=== PATIENT | female | born 1985 | race Caucasian/White ===

== ENCOUNTER 2017-11-29 11:44 | Inpatient (IN) | payer OTHER ==
[~2017-11-29] VITALS: Ht 167.6 cm; Wt 98.9 kg
[2017-11-29] MEDS ORDERED: FERR325E14 PO (12:07)
[2017-11-29] MEDS ORDERED: TRA200 PO (12:07)
[2017-11-29] MEDS ORDERED: PREN-380 PO (12:07)
[2017-11-29 12:26] VITALS: BP 135/77
[2017-11-29] MEDS ORDERED: TERBUTALINE 1 MG/ML VIAL SUBQ SCH (13:00)
[2017-11-29] MEDS ORDERED: TERBUTALINE 1 MG/ML VIAL SUBQ ONE (13:02)
[2017-11-29] MEDS ORDERED: SYN.075 PO (13:10)
[2017-11-29] MEDS ORDERED: METF500T PO (13:10)
[2017-11-29] MEDS ORDERED: BETAMETH ACET/BETAMETH NA PH 30 MG/5 ML VIAL IM ONE (14:00)
[2017-11-29] MEDS: BETAMETH ACET/BETAMETH NA PH 30 MG/5 ML VIAL IM SCH (14:03)
[2017-11-29 14:27] LABS: HEMOGLOBIN 10.5 g/dL (12.0-16.0); RED BLOOD CELL COUNT(AUTO) 3.77 MIL/uL (4.20-5.40); WHITE BLOOD COUNT (AUTO) 10.5 K/uL (4.8-10.8)
[2017-11-29 14:28] LABS: HEMATOCRIT 32.8 % (36-48); MEAN CORPUSCULAR HEMOGLOBIN 28 pg (27-31); MEAN CORPUSCULAR HGB CONC 32 g/dL (33-37); PLATELET COUNT (AUTO) 201 K/uL (140-450); RED CELL DISTRIBUTION WIDTH 13.3 % (11.6-13.7)
[2017-11-29 14:29] LABS: BASOPHILS # (AUTO) 0.2 K/uL (0.00-0.22); BASOPHILS % (AUTO) 1.8 % (0.0-2.0); EOSINOPHILS # (AUTO) 0.4 K/uL (0-0.4); EOSINOPHILS % (AUTO) 3.5 % (0.0-4.0); LYMPHOCYTES # (AUTO) 2.4 K/uL (2.5-16.5); MONOCYTES # (AUTO) 0.7 K/uL (0.8-1.0); MONOCYTES % (AUTO) 6.7 % (1.7-9.3); NEUTROPHILS # (AUTO) 6.8 K/uL (1.8-7.7)
[2017-11-29] MEDS: LACTATED RINGERS 1,000 ML IV SCH ×2 (14:35→22:11)
[2017-11-29 14:50] LABS: PROTHROMBIN TIME 9.8 secs (10.8-13.4)
[2017-11-29 15:35] LABS: BILIRUBIN,URINE NEGATIVE (NEGATIVE); BLOOD, URINE NEGATIVE (NEGATIVE); COLOR,URINE YELLOW (YELLOW); LEUKOCYTE ESTERASE ,URINE TRACE (NEGATIVE); NITRITE, URINE NEGATIVE (NEGATIVE); PH,URINE 6.5 (5.0-9.0); UGLUCOSE NEGATIVE (NEGATIVE)
[2017-11-29 15:57] LABS: POTASSIUM 2.8 mmol/L (3.5-5.1)
[2017-11-29 15:58] LABS: ANION GAP 11.6 (8-16); CARBON DIOXIDE 25.2 mmol/L (21-32); CREATININE 0.6 mg/dL (0.6-1.3); TOTAL BILIRUBIN 0.4 mg/dL (0.0-1.0)
[2017-11-29 15:59] LABS: ALBUMIN 2.8 g/dL (3.4-5.0)
[2017-11-29 17:21] LABS: APPEARANCE,URINE HAZY (CLEAR)
[2017-11-29] MEDS ORDERED: POTASSIUM CHLORIDE 10 MEQ TABER PO SCH (20:00)
[2017-11-29] MEDS ORDERED: POTASSIUM CHLORIDE 10 MEQ TABER PO ONE (20:20)
[2017-11-29] MEDS: metFORMIN 500 MG TAB PO SCH (21:06)
[2017-11-29] MEDS: LABETALOL 200 MG TAB PO SCH (21:06)
[2017-11-29] MEDS ORDERED: LABETALOL 200 MG TAB ONE (21:08)
[2017-11-30] MEDS: TERBUTALINE 2.5 MG TAB PO SCH ×3 (00:03→12:00)
[2017-11-30] MEDS ORDERED: TERBUTALINE 2.5 MG TAB ONE ×3 (00:04→12:02)
[2017-11-30] MEDS: LACTATED RINGERS 1,000 ML IV SCH (06:30)
[2017-11-30] MEDS ORDERED: LEVOTHYROXINE 0.075 MG TAB PO SCH (06:30)
[2017-11-30] MEDS: LABETALOL 200 MG TAB PO SCH (08:55)
[2017-11-30] MEDS ORDERED: LABETALOL 200 MG TAB ONE (08:57)
[2017-11-30] MEDS: metFORMIN 500 MG TAB PO SCH (09:33)
--- NOTE | 2017-11-30 10:27 | NUR ---
PATIENT HAS BEEN SCREENED AND CATEGORIZED LOW NUTRITION RISK. PATIENT WILL BE SEEN WITHIN 7 DAYS OF ADMISSION. 12/05/[address]
[2017-11-30] MEDS ORDERED: BRE5 PO (13:37)
--- NOTE | 2017-11-30 13:37 | NUR ---
CM NOTE INITIAL REVIEW FAXED TO [facility] [phone] [place] PH# [phone] CAL [phone]
[2017-11-30] MEDS ORDERED: BETAMETH ACET/BETAMETH NA PH 30 MG/5 ML VIAL IM ONE (14:04)
[2017-11-30] MEDS: BETAMETH ACET/BETAMETH NA PH 30 MG/5 ML VIAL IM SCH (14:05)
== END 2017-11-30 14:45 | disposition home or self-care (01) | DRG 566 ==
LOC: MLD 11:44 → OBSVTOIN 12:18
PROVIDERS: ADMIT Obstetrics & Gynecology; ATTEND Obstetrics & Gynecology
DX: O26.893 Other specified pregnancy related conditions, third trimester (principal); R03.0 Elevated blood-pressure reading, without diagnosis of hypertension; Z3A.34 34 weeks gestation of pregnancy
CPT/HCPCS: 36415; 76805; 80053; 81001; 85025; 85379; 85384; 85610; 85730; C1758; G0378; J0702; J3105; J7120; Q0092

== ENCOUNTER 2017-12-09 14:13 | Observation (INO) | payer OTHER ==
[~2017-12-09] VITALS: Ht 167.6 cm; Wt 98.9 kg
[~2017-12-09 14:13] MED LIST: FERR325E14 PO; PREN-380 PO
[2017-12-09 15:12] VITALS: BP 139/77
[2017-12-09] MEDS ORDERED: TRA200 PO (16:38)
[2017-12-09] MEDS ORDERED: LORA10TA19 PO (16:47)
[2017-12-09] MEDS ORDERED: METF500T PO (16:47)
[2017-12-09] MEDS ORDERED: SYN.075 PO (16:47)
== END 2017-12-09 19:45 | disposition home or self-care (01) ==
LOC: MLD 14:13
PROVIDERS: ADMIT Obstetrics & Gynecology; ATTEND Obstetrics & Gynecology
DX: O26.893 Other specified pregnancy related conditions, third trimester (principal); R10.9 Unspecified abdominal pain; Z3A.36 36 weeks gestation of pregnancy
CPT/HCPCS: 36415; 81000; 82731; G0378

== ENCOUNTER 2017-12-17 13:37 | Inpatient (IN) | payer OTHER ==
[~2017-12-17] VITALS: Ht 167.6 cm; Wt 100.7 kg
[~2017-12-17 13:37] MED LIST changes: +LORA10TA19 PO; +METF500T PO; +SYN.075 PO; +TRA200 PO
[2017-12-17] MEDS ORDERED: TERBUTALINE 1 MG/ML VIAL SUBQ ONE (14:53)
== END 2017-12-17 17:56 | disposition home or self-care (01) | DRG 566 ==
LOC: MLD 13:37
PROVIDERS: ADMIT Obstetrics & Gynecology; ATTEND Obstetrics & Gynecology
DX: O26.893 Other specified pregnancy related conditions, third trimester (principal); Z3A.00 Weeks of gestation of pregnancy not specified
CPT/HCPCS: 59025; 76815; J3105; Q0092

== ENCOUNTER 2017-12-31 14:42 | Inpatient (IN) | payer OTHER ==
[~2017-12-31] VITALS: Ht 167.6 cm; Wt 101.6 kg
[2017-12-31] MEDS ORDERED: CARBOPROST 250 MCG/ML AMP IM PRN (15:10)
[2017-12-31] MEDS ORDERED: PROMETHAZINE 25 MG/ML VIAL IVP PRN (15:10)
[2017-12-31] MEDS ORDERED: LACTATED RINGERS 1,000 ML IV SCH (15:10)
[2017-12-31] MEDS ORDERED: METHYLERGONOVINE 0.2 MG/ML AMP IM PRN (15:10)
[2017-12-31] MEDS ORDERED: NALBUPHINE 10 MG/ML AMP IVP PRN (15:10)
[2017-12-31] MEDS ORDERED: OXYTOCIN 10 UNITS/ML VIAL IM SCH (15:10)
[2017-12-31 15:19] VITALS: BP 135/81
[2017-12-31] MEDS ORDERED: MISOPROSTOL 25 MCG TAB VG SCH (16:00)
[2017-12-31 16:18] LABS: BASOPHILS % (AUTO) 0.4 % (0.0-2.0); EOSINOPHILS # (AUTO) 0.3 K/uL (0-0.4); EOSINOPHILS % (AUTO) 3.2 % (0.0-4.0); HEMATOCRIT 30.5 % (36-48); HEMOGLOBIN 10.4 g/dL (12.0-16.0); LYMPHOCYTES # (AUTO) 2.2 K/uL (2.5-16.5); LYMPHOCYTES % (AUTO) 20.6 % (20.5-51.1); MEAN CORPUSCULAR HEMOGLOBIN 29 pg (27-31); MEAN CORPUSCULAR HGB CONC 34 g/dL (33-37); MEAN CORPUSCULAR VOLUME 85.2 fL (80-94); MONOCYTES # (AUTO) 0.7 K/uL (0.8-1.0); MONOCYTES % (AUTO) 6.6 % (1.7-9.3); NEUTROPHILS # (AUTO) 7.5 K/uL (1.8-7.7); NEUTROPHILS % (AUTO) 69.2 % (42.2-75.2); PLATELET COUNT (AUTO) 229 K/uL (140-450); RED BLOOD CELL COUNT(AUTO) 3.58 MIL/uL (4.20-5.40); RED CELL DISTRIBUTION WIDTH 14.4 % (11.6-13.7); WHITE BLOOD COUNT (AUTO) 10.8 K/uL (4.8-10.8)
[2017-12-31 16:21] LABS: APPEARANCE,URINE SL CLOUDY (CLEAR); BILIRUBIN,URINE NEGATIVE (NEGATIVE); BLOOD, URINE NEGATIVE (NEGATIVE); COLOR,URINE YELLOW (YELLOW); LEUKOCYTE ESTERASE ,URINE TRACE (NEGATIVE); NITRITE, URINE NEGATIVE (NEGATIVE); PH,URINE 7.5 (5.0-9.0); UGLUCOSE NEGATIVE (NEGATIVE)
[2017-12-31 16:48] LABS: PROTHROMBIN TIME 8.7 secs (10.8-13.4)
[2017-12-31 16:49] LABS: RBC,URINE 0-5 (RARE) /HPF (0-5); WBC,URINE 0-5 (RARE) /HPF (0-5)
[2017-12-31 16:51] LABS: ALBUMIN 2.7 g/dL (3.4-5.0); ANION GAP 12.1 (8-16); CARBON DIOXIDE 23.1 mmol/L (21-32); CREATININE 0.4 mg/dL (0.6-1.3); POTASSIUM 3.2 mmol/L (3.5-5.1); TOTAL BILIRUBIN 0.3 mg/dL (0.0-1.0)
== END 2017-12-31 20:00 | disposition home or self-care (01) | DRG 566 ==
LOC: MLD 14:42
PROVIDERS: ADMIT Obstetrics & Gynecology; ATTEND Obstetrics & Gynecology
DX: O14.90 Unspecified pre-eclampsia, unspecified trimester (principal); Z3A.00 Weeks of gestation of pregnancy not specified
CPT/HCPCS: 36415; 76815; 80053; 81001; 85025; 85610; 85730; 86592; 86886; 86900; 86901; J7120; Q0092

== ENCOUNTER 2018-01-06 17:40 | Inpatient (IN) | payer OTHER ==
[~2018-01-06] VITALS: Ht 167.6 cm; Wt 96.2 kg
[2018-01-06] MEDS: LACTATED RINGERS 1,000 ML IV SCH (05:09)
[~2018-01-06 17:40] MED LIST changes: -LORA10TA19 PO
[2018-01-06 18:19] VITALS: BP 169/93
[2018-01-06] MEDS ORDERED: OXYTOCIN 20 UNITS in LACTATED RINGERS 1,000 ML IV SCH ×2 (19:26→20:06)
[2018-01-06] MEDS ORDERED: NALBUPHINE 10 MG/ML AMP IVP PRN ×2 (19:30→20:10)
[2018-01-06] MEDS ORDERED: MORPHINE SULFATE 2 MG/ML SYR IVP PRN (19:30)
[2018-01-06] MEDS ORDERED: ONDANSETRON 4 MG/2 ML VIAL IVP PRN (19:30)
[2018-01-06] MEDS ORDERED: MISOPROSTOL 25 MCG TAB VG ONE ×2 (20:00→20:10)
[2018-01-06] MEDS ORDERED: MISOPROSTOL 25 MCG TAB ONE ×2 (20:22→20:29)
[2018-01-06 20:36] LABS: BASOPHILS % (AUTO) 0.5 % (0.0-2.0); EOSINOPHILS # (AUTO) 0.2 K/uL (0-0.4); EOSINOPHILS % (AUTO) 2.4 % (0.0-4.0); HEMATOCRIT 30.4 % (36-48); HEMOGLOBIN 10.5 g/dL (12.0-16.0); LYMPHOCYTES % (AUTO) 21.5 % (20.5-51.1); MEAN CORPUSCULAR HEMOGLOBIN 30 pg (27-31); MEAN CORPUSCULAR HGB CONC 34 g/dL (33-37); MEAN CORPUSCULAR VOLUME 86.2 fL (80-94); MONOCYTES # (AUTO) 0.7 K/uL (0.8-1.0); NEUTROPHILS # (AUTO) 6.4 K/uL (1.8-7.7); NEUTROPHILS % (AUTO) 68.6 % (42.2-75.2); PLATELET COUNT (AUTO) 193 K/uL (140-450); RED BLOOD CELL COUNT(AUTO) 3.53 MIL/uL (4.20-5.40); RED CELL DISTRIBUTION WIDTH 14.6 % (11.6-13.7); WHITE BLOOD COUNT (AUTO) 9.3 K/uL (4.8-10.8)
[2018-01-06] MEDS: NIFEdipine 10 MG CAPLF PO SCH (20:47)
[2018-01-06] MEDS ORDERED: NIFEdipine 10 MG CAPLF ONE (20:49)
[2018-01-06 20:59] LABS: ALBUMIN 2.5 g/dL (3.4-5.0); ANION GAP 13.2 (8-16); CARBON DIOXIDE 23.1 mmol/L (21-32); CREATININE 0.5 mg/dL (0.6-1.3); POTASSIUM 3.3 mmol/L (3.5-5.1); TOTAL BILIRUBIN 0.3 mg/dL (0.0-1.0)
[2018-01-06] MEDS: LABETALOL 200 MG TAB PO SCH (21:12)
[2018-01-06] MEDS ORDERED: LABETALOL 200 MG TAB ONE (21:15)
[2018-01-06 21:33] LABS: APPEARANCE,URINE CLEAR (CLEAR); BILIRUBIN,URINE NEGATIVE (NEGATIVE); BLOOD, URINE NEGATIVE (NEGATIVE); COLOR,URINE YELLOW (YELLOW); LEUKOCYTE ESTERASE ,URINE NEGATIVE (NEGATIVE); NITRITE, URINE NEGATIVE (NEGATIVE); UGLUCOSE NEGATIVE (NEGATIVE)
[2018-01-07] MEDS: NIFEdipine 10 MG CAPLF PO SCH ×5 (01:03→17:20)
[2018-01-07] MEDS ORDERED: NIFEdipine 10 MG CAPLF ONE ×5 (01:04→17:21)
[2018-01-07] MEDS ORDERED: OXYTOCIN 20 UNITS/LR PREMIX 1,000 ML IV ONE (03:43)
--- NOTE | 2018-01-07 08:31 | NUR ---
PATIENT HAS BEEN SCREENED AND CATEGORIZED LOW NUTRITION RISK. PATIENT WILL BE SEEN WITHIN 7 DAYS OF ADMISSION. 01/13/[address]
[2018-01-07] MEDS: LABETALOL 200 MG TAB PO SCH (08:45)
[2018-01-07] MEDS ORDERED: LABETALOL 200 MG TAB ONE (08:48)
[2018-01-07] MEDS ORDERED: TERBUTALINE 1 MG/ML VIAL SUBQ SCH ×2 (10:00→17:55)
[2018-01-07] MEDS ORDERED: ACETAMINOPHEN 325 MG TAB PO PRN (10:05)
[2018-01-07] MEDS: TERBUTALINE 1 MG/ML VIAL SUBQ ONE (10:16)
[2018-01-07] MEDS ORDERED: ACETAMINOPHEN 325 MG TAB ONE (10:18)
[2018-01-07] MEDS: LACTATED RINGERS 1,000 ML IV SCH ×2 (13:03→17:21)
[2018-01-07] MEDS ORDERED: TERBUTALINE 1 MG/ML VIAL SUBQ ONE (17:54)
[2018-01-07] MEDS ORDERED: CITRIC ACID/SODIUM CITRATE 30 ML UDC PO ONE (21:10)
[2018-01-07] MEDS ORDERED: ceFAZolin 1,000 MG VIAL ONE (21:30)
[2018-01-07] MEDS: LABETALOL 100 MG/20 ML VIAL IV SCH (21:50)
[2018-01-07] MEDS ORDERED: LABETALOL 100 MG/20 ML VIAL ONE ×2 (21:53→22:05)
[2018-01-07] MEDS ORDERED: PROPOFOL 200 MG/20 ML VIAL IV ONE (22:05)
[2018-01-07] MEDS ORDERED: BUPIVACAINE/DEXT 0.75% SPINAL 2 ML AMP INJ ONE (22:12)
[2018-01-07] MEDS ORDERED: MORPHINE PRES FREE 2 MG/2 ML 2 mL UD SYRINGE ONE (22:12)
[2018-01-07] MEDS ORDERED: ceFAZolin 1,000 MG VIAL IVP ONE (22:15)
[2018-01-07] MEDS ORDERED: OXYTOCIN 20 UNITS in LACTATED RINGERS 1,000 ML IV SCH (22:21)
[2018-01-07] MEDS ORDERED: ONDANSETRON 4 MG/2 ML VIAL IVP PRN (22:25)
[2018-01-07] MEDS ORDERED: diphenhydrAMINE 50 MG/ML VIAL IVP PRN (22:25)
[2018-01-07] MEDS ORDERED: NALOXONE 0.4 MG/ML VIAL IVP PRN (22:25)
[2018-01-07] MEDS ORDERED: MIDAZOLAM 2 MG/2 ML VIAL ONE (23:24)
[2018-01-07] MEDS ORDERED: fentaNYL 0.05 MG/ML VIAL ONE (23:38)
[2018-01-08] VITALS (22 sets, daily range): BP systolic 123–153; BP diastolic 65–96
--- NOTE | 2018-01-08 00:50 | NUR ---
RECEIVED PT FROM L&D VIA ICU BED.PT ATTACHED TO MONITOR.SB/SR NOTED ON MONITOR.PT DESAT, PLACED ON 02NC AT 4LPM ORDERED.PERIPHERAL IV TO RT F/A G20 INTACT INFUSING ORDERED IVF.PT DROWSY BUT ABLE TO ANSWER QUESTIONS.ABDOMEN WITH DRY AND INTACT DRESSING.( PER MD ORDER DO NOT OPEN OR REMOVE DRESSING; SO SURGICAL INCISION NOT ASSESSED AT THIS TIME.W/AVELINO DRAIN ALSO NOTED.WITH 15ML OF SANGUINOUS DRAINAGE NOTED.MD AWARE.W/SLIGHT VAGINAL BLEEDING NOTED.PT ABLE TO MOVE ALL EXTREMITIES WITH GOOD STRENGTH.DENIES PAIN WHEN ASKED.WILL CONTINUE TO CLOSELY MONITOR PT.CALL LIGHT WITHIN REACH.BED IN LOW POSITION.HOB AT [address] WOODWARD .PTS FAMILY AT BEDSIDE.
[2018-01-08] MEDS: NIFEdipine 10 MG CAPLF PO SCH ×5 (01:00→20:04)
[2018-01-08] MEDS ORDERED: OXYTOCIN 20 UNITS/LR PREMIX 1,000 ML IV ONE (01:08)
[2018-01-08] MEDS ORDERED: KETOROLAC 30 MG/ML VIAL IVP PRN ×2 (01:25→14:30)
[2018-01-08] MEDS ORDERED: HYDROmorphone 1 MG/ML AMP IVP PRN ×2 (01:25→14:30)
[2018-01-08] MEDS ORDERED: MEASLES, MUMPS, AND RUBELLA 1 VIAL SQVAC PRN ×2 (01:25→14:30)
--- NOTE | 2018-01-08 01:50 | NUR ---
PHONE CALL TO DR MAHMOOD'S GROUP FOR UTILITY GELATIN MAKER CONSULT; ELEVATOR SERVICEMAN IS DR ANGI MARAVILLA.SPOKE WITH MD.NOTIFIED OF THE ABOVE ADMISSION.QUESTIONS ANSWERED. PER MD, HE WILL COME TO SEE PT.
[2018-01-08] MEDS ORDERED: MAG SULF 2000 MG/WATER PREMIX 100 ML IV SCH (02:00)
--- NOTE | 2018-01-08 02:26 | NUR ---
PT C/O NAUSEA, VOMITED 100ML OF GREENISH VOMITUS; ZOFRAN GIVEN ORDERED.WILL CONTINUE TO MONITOR PT
[2018-01-08] MEDS: TERBUTALINE 1 MG/ML VIAL SUBQ ONE (02:35)
[2018-01-08] MEDS ORDERED: LABETALOL 100 MG/20 ML VIAL IV PRN ×2 (03:00→15:10)
--- NOTE | 2018-01-08 03:11 | NUR ---
STARTED MAGNESIUM PER ORDER.LOADING DOSE VERIFIED BY AFTER HOUR PHARMACIST, WITNESSED BY LUCAS BECKWITH. PT AWAKE ALERT AND ORIENTED.STILL DENYING PAIN.VERBALIZED FEELING RELIEVED FROM N/V.
[2018-01-08] MEDS: LABETALOL 100 MG/20 ML VIAL IV SCH (03:12)
[2018-01-08] MEDS: MAG SULF 2000 MG/WATER PREMIX 50 ML IV SCH ×2 (03:59→05:09)
[2018-01-08] MEDS ORDERED: MAG SULF 20 GM/H2O PREMIX DRIP 500 ML IV ONE (04:29)
--- NOTE | 2018-01-08 04:45 | NUR ---
ALLEN BECKWITH OF L&D CAME IN TO CHECK PT, NOTED CLOTS AND MODERATE AMT OF BLEEDING.SHE SAID SHE WILL NOTIFY DR PEREZ.
--- NOTE | 2018-01-08 04:50 | NUR ---
PT WASHED; SLIGHT AMT OF VAGINAL BLEEDING NOTED WHEN PT WAS REPOSITIONED.NO SOB NOTED ON ROOM AIR,PT REMOVED NASAL CANNULA.WILL CONTINUE TO CLOSELY MONITOR PT.
[2018-01-08] MEDS: OXYTOCIN 20 UNITS in LACTATED RINGERS 1,000 ML IV SCH ×4 (04:51→22:52)
--- NOTE | 2018-01-08 05:00 | NUR ---
PHONE CALL FROM ALLEN BECKWITH(L&D); SHE SAID SHE SPOKE WITH DR PEREZ AND THAT DR PEREZ IS AWARE OF THE VAGINAL BLEEDING.NO NEW ORDERS
[2018-01-08] MEDS ORDERED: LEVOTHYROXINE 0.075 MG TAB PO SCH (06:30)
--- NOTE | 2018-01-08 06:30 | NUR ---
DR MARAVILLA , ICU SITE IDENTIFICATION SPECIALIST AT BEDSIDE; PT EXAMINED.NO NEW ORDERS
--- NOTE | 2018-01-08 07:08 | NUR ---
RECEIVED BEDSIDE REPORT FROM STOCK PLAN ADMINISTRATOR RN FOR CONTINUITY OF CARE. PATIENT IS AAOX4, ABLE TO FOLLOW COMMANDS AND MAKE NEEDS KNOWN. PATIENT SKIN IS WARM AND DRY, SHE HAS S/P INCISION TO ABDOMEN WITH AVELINO DRAIN IN PLACE, DRESSING DRY AND INTACT. PATIENT HAS PERIPHERAL IV SITE TO RIGHT FA, 20 GAUGE. PATIENT IS ON ROOM AIR, DENIES ANY SOB, O2 SAT IS 98. SR ON MONITOR, BP IS 148/84, NO SIGNS OF DISTRESS NOTED. PATIENT HAS STEPHENSON CATHETER IN PLACE TO YELLOW CLEAR URINE. HOB IS SEMI-FOLEY IN A LOW POSITION. CALL LIGHT WITHIN REACH, WILL CONTINUE TO MONITOR.
--- NOTE | 2018-01-08 07:40 | NUR ---
PATIENT'S FAMILY AT BEDSIDE, UPDATED ON PATIENT'S CONDITION. WILL CONTINUE TO MONITOR.
[2018-01-08 08:52] LABS: BASOPHILS % (AUTO) 0.3 % (0.0-2.0); EOSINOPHILS # (AUTO) 0.1 K/uL (0-0.4); EOSINOPHILS % (AUTO) 0.6 % (0.0-4.0); HEMATOCRIT 27.5 % (36-48); HEMOGLOBIN 9.5 g/dL (12.0-16.0); LYMPHOCYTES # (AUTO) 1.5 K/uL (2.5-16.5); LYMPHOCYTES % (AUTO) 13.2 % (20.5-51.1); MEAN CORPUSCULAR HEMOGLOBIN 30 pg (27-31); MEAN CORPUSCULAR HGB CONC 35 g/dL (33-37); MEAN CORPUSCULAR VOLUME 86.1 fL (80-94); MONOCYTES # (AUTO) 0.8 K/uL (0.8-1.0); MONOCYTES % (AUTO) 6.6 % (1.7-9.3); NEUTROPHILS # (AUTO) 9.3 K/uL (1.8-7.7); NEUTROPHILS % (AUTO) 79.3 % (42.2-75.2); PLATELET COUNT (AUTO) 184 K/uL (140-450); RED CELL DISTRIBUTION WIDTH 14.6 % (11.6-13.7); WHITE BLOOD COUNT (AUTO) 11.7 K/uL (4.8-10.8)
[2018-01-08] MEDS ORDERED: DOCUSATE SODIUM 100 MG GELCAP PO SCH (09:00)
[2018-01-08] MEDS: SIMETHICONE 80 MG TAB.CHEW PO SCH ×2 (09:00→13:00)
[2018-01-08] MEDS: LABETALOL 200 MG TAB PO SCH ×2 (09:00→21:15)
[2018-01-08] MEDS ORDERED: BISACODYL 5 MG TABEC PO SCH (09:00)
--- NOTE | 2018-01-08 09:05 | NUR ---
OB RN IN TO SEE AND SPEAK WITH PATIENT, EDUCATED PATIENT ON RELAXATION TECHNIQUES TO HELP CALM PATIENT. NO SIGNS OF DISTRESS NOTED. WILL CONTINUE TO MONITOR.
[2018-01-08 09:43] LABS: ANION GAP 9.2 (8-16); CARBON DIOXIDE 24.1 mmol/L (21-32); POTASSIUM 3.3 mmol/L (3.5-5.1)
--- NOTE | 2018-01-08 10:15 | NUR ---
SPOKE WITH DR. PEREZ REGARDING PATIENT'S CONDITION, STATED THAT PATIENT NEEDS TO CONTINUE NPO STATUS AND THAT HE WILL BE COMING AROUND LUNCH TIME TO SEE PATIENT.
[2018-01-08 10:25] LABS: CREATININE 0.3 mg/dL (0.6-1.3)
--- NOTE | 2018-01-08 10:30 | NUR ---
CALLED DR. MARAVILLA REGARDING PATIENT'S CRITICAL LAB, CREATININE 0.3 AND POTASSIUM 3.3, RECEIVED ORDER FOR K RIDER 40 MEQ. WILL CARRY OUT ORDERS.
[2018-01-08] MEDS ORDERED: KCL 20 MEQ/WATER INJ PREMIX 200 ML IV ONE (10:35)
--- NOTE | 2018-01-08 10:35 | NUR ---
SPOKE WITH PHARMACY REGARDING K RIDER COMPATIBILITY OF POTASSIUM AND PITOCIN, TRAVEL MONEY ADVISOR STATED THAT THEY ARE COMPATIBLE.
--- NOTE | 2018-01-08 10:58 | NUR ---
ADMINISTERED K-RIDER ORDERED, PATIENT TOLERATED WELL, NO SIGNS OF DISTRESS NOTED AT THIS TIME. WILL CONTINUE TO MONITOR PATIENT
--- NOTE | 2018-01-08 11:30 | NUR ---
PATIENT COMPLAINS THAT SHE FEEL PRESSURE IN LOWER ABDOMEN, 4/10 PAIN. ADMINISTERED PRN MORPHINE 2MG IVP, PATIENT TOLERATED WELL.
--- NOTE | 2018-01-08 12:41 | NUR ---
NURSERY RN AT BEDSIDE TO UPDATE PATIENT ABOUT BABY, PATIENT PRESENTS NO SIGNS OF DISTRESS AT THIS TIME. WILL CONTINUE TO MONITOR
--- NOTE | 2018-01-08 13:16 | NUR ---
OB RN AT BEDSIDE TO ASSESS PATIENT, NO SIGNS OF DISTRESS NOTED, VS STABLE. WILL CONTINUE TO MONITOR
--- NOTE | 2018-01-08 13:31 | NUR ---
PT SLEEPING WILL COME BACK TO INSTRUCT PT ON IS
--- NOTE | 2018-01-08 14:14 | NUR ---
DR. PEREZ IN TO SEE AND EXAMINE PATIENT, UPDATED ON PATIENT'S CONDITION. WILL FOLLOW UP ON ANY ORDERS.
[2018-01-08] MEDS ORDERED: PROBIOTIC SCREEN 1 EA MISC MC PRN (16:05)
[2018-01-08] MEDS: MAG SULF 20 GM/H2O PREMIX DRIP 500 ML IV SCH (16:06)
[2018-01-08] MEDS ORDERED: SIMETHICONE 80 MG TAB.CHEW PO SCH (17:00)
--- NOTE | 2018-01-08 17:10 | NUR ---
PATIENT'S BP WAS 167/90, ADMINISTERED LABETALOL PRN 20 MG, PATIENT TOLERATED WELL. WILL CONTINUE TO MONITOR
--- NOTE | 2018-01-08 17:15 | NUR ---
FAMILY AT BEDSIDE, UPDATED ON PATIENT'S CONDITION. NO SIGNS OF DISTRESS NOTED. WILL CONTINUE TO MONITOR.
--- NOTE | 2018-01-08 19:25 | NUR ---
RECEIVED BEDSIDE REPORT FROM MORNING SHIFT RNDARKE, FOR CONTINUITY OF CARE. PT IS AFEBRILE, AOX4, AWAKE AND ABLE TO RESPOND TO COMMANDS/MAKE NEEDS KNOWN. STATES MILD PAIN AT THE SITE OF INCISION. NO SIGNS OF BLEEDING ON DRESSING. ON ROOM AIR, LUNG SOUNDS CLEAR ON AUSCULTATION. SR ON LEAN FACILITATOR, BP: 150/71. BOWEL SOUNDS ACTIVE IN ALL FOUR QUADRANTS. STEPHENSON CATHETER IN PLACE, URINE OUT PUT CLEAR/YELLOW. PIV ON RIGHT FOREARM 20 GAUGE - INTACT, ASYMPTOMATIC AND INFUSING OXYTOCIN 0.025 UNITS/MIN AND MG 2000MG/HR. STEPSISTER AT BEDSIDE AT THIS THIS TIME. HOB ELEVATED, STANDARD PRECAUTIONS MAINTAINED. Addendum: 01/08/18 at 1945 by Ivette Geronimo RN MINIMAL BLOOD IN AVELINO DRAIN, <3ML IN AVELINO DRAIN AT THIS TIME.
--- NOTE | 2018-01-08 21:00 | NUR ---
PT SLEEPING QUIETLY AT BEDSIDE. BP 137/64.
--- NOTE | 2018-01-08 21:10 | NUR ---
L&D NURSE, ALLEN, AT BEDSIDE TO ASSESS PT BLEEDING.
--- NOTE | 2018-01-08 21:21 | NUR ---
CALLED L&D NURSE TO INFORMED PT STATING FACE IS "HOT". REDNESS ON CHEEKS NOTED AND FACE IS WARM TO TOUCH. ALLEN STATED THIS IS NORMAL DUE TO MAG INFUSION, EDUCATED PT ON ALLEN'S. PT VERBALIZES UNDERSTANDING. WILL CONTINUE TO MONITOR.
--- NOTE | 2018-01-08 21:36 | NUR ---
EMPTIED URINAL 1750ML. URINE IS CLEAR/YELLOW NON-MALODOROUS.
--- NOTE | 2018-01-08 23:14 | NUR ---
TORADOL GIVEN FOR PAIN RATED 5/10. PT ASLEEP AT THIS TIME. VSS, BP: 128/68. MAG AND OXYTOCIN INFUSING ON RIGHT FOREARM 20 GAUGE, NO C/O OF PAIN AT IV SITE. PT ABLE TO REPOSITION SELF IN BED, SCDS ON BILATERAL LEGS AND PILLOW SUPPORT PROVIDED.
[2018-01-09] VITALS: BP 131/60
--- NOTE | 2018-01-09 00:20 | NUR ---
CALLED LAB TO REMIND OF 00:00 MAGNESIUM DRAW DUE AT THIS TIME.
[2018-01-09] MEDS: NIFEdipine 10 MG CAPLF PO SCH ×6 (00:35→20:15)
--- NOTE | 2018-01-09 00:41 | NUR ---
LAB AT BEDSIDE FOR BLOOD DRAW. BP: 119/71, AFEBRILE: TEMP 98.3. SKIN IS WARM TO TOUCH NORMAL IN COLOR, NO REDNESS IN FACE. MINIMAL OUTPUT IN AVELINO DRAIN, <5ML AT THIS TIME. Addendum: 01/09/18 at 0045 by Ivette Geronimo RN [id number] LAB AT BEDSIDE.
--- NOTE | 2018-01-09 01:57 | NUR ---
RECEIVED CALL FROM ROMELIA MOLINA, REPORTING CRITICAL LAB: MAGNESIUM OF 4.7.
[2018-01-09 02:00] VITALS: BP 132/71
[2018-01-09] MEDS: OXYTOCIN 20 UNITS in LACTATED RINGERS 1,000 ML IV SCH ×2 (02:04→06:48)
--- NOTE | 2018-01-09 02:12 | NUR ---
ASSESSED BEDPAD FOR VAGINAL DISCHARGE AND BLEEDING; MINIMAL BLEEDING NOTED SANGUINOUS IN COLOR.
[2018-01-09] MEDS ORDERED: OXYTOCIN 20 UNITS/LR PREMIX 1,000 ML IV ONE ×2 (02:48→15:08)
[2018-01-09] MEDS: MAG SULF 20 GM/H2O PREMIX DRIP 500 ML IV SCH (02:53)
[2018-01-09 04:00] VITALS: BP 148/75
--- NOTE | 2018-01-09 04:21 | NUR ---
PT SLEEPING AT THIS TIME, APPEARS WITHOUT DISTRESS. URINE OUTPUT 1225mL, YELLOW/CLEAR. AFEBRILE, BP: 148/75. PROCARDIA GIVEN ORDERED, WILL CONTINUE TO MONITOR.
--- NOTE | 2018-01-09 05:28 | NUR ---
PATIENT IS AWAKE AND ALERT, LIGHT BED BATH/WASH-UP PROVIDED TO PT AT BEDSIDE, ORAL CARE, AND PERINEAL CARE PROVIDED. MINIMAL SANGUINOUS VAGINAL DISCHARGE ON PAD, CHANGED, AND FRESH GOWN PROVIDED. DENIES PAIN OR NAUSEA. ABLE TO REPOSITION SELF IN BED.
--- NOTE | 2018-01-09 05:55 | NUR ---
ATTEMPTED TO CONTACT DR. PEREZ VIA OFFICE #[phone] AND PAGER #[phone] TO INFORM OF PT BEING IN STABLE CONDITION AND TO TRANSFER BACK TO L&D, AND TO REPORT CRITICAL LAB VALUE OF MAG= 4.7.
[2018-01-09 06:00] VITALS: BP 135/74
--- NOTE | 2018-01-09 06:40 | NUR ---
TRANSFERRED PT TO L&D UNIT VIA WHEELCHAIR TO ROOM # 214. VSS. BP= 135/73, AFEBRILE, O2=99%, RESP 20. FAMILY (SISTER) AT BEDSIDE. PT IS SITTING UP A THE SIDE OF BED. TOLERATED AMBULATION WELL, DENIES PAIN AND NAUSEA AT THIS TIME. Addendum: 01/09/18 at 0704 by Ivette Geronimo RN PT IS AWAKE/ALERT. RIGHT FOREARM PIV 20 GAUGE INFUSING OXYTOCIN AT 125ML/HR AND MAG SULFATE AT 50ML/HR. SALINE FLUSHED, WITH BLOOD RETURN. SCDS OFF BILATERAL LEGS, ON ROOM AIR.
--- NOTE | 2018-01-09 07:44 | NUR ---
PT WAS INITIALLY TRANSFERRED TO UNIT, RN, INFORMED ME THAT SINCE PT HAS MAGNESIUM DRIP THAT SHE MUST GO TO L&D UNIT. PRECISION FARMING COORDINATOR RN, ALLEN, WILL TRANSFER PATIENT TO APPROPRIATE ROOM ON L&D UNIT. PROVIDED REPORT TO MORNING SHIFT RN'S FOR CONTINUITY OF PATIENT CARE.
--- NOTE | 2018-01-09 07:46 | NUR ---
CORRECTION: PATIENT WAS IN POST UNIT, NOT L&D. PATIENT WILL BE MOVED TO L&D UNIT.
[2018-01-09] MEDS ORDERED: NIFEdipine 10 MG CAPLF ONE ×4 (08:20→19:50)
[2018-01-09] MEDS ORDERED: LABETALOL 200 MG TAB ONE (09:06)
[2018-01-09] MEDS: DOCUSATE SODIUM 100 MG GELCAP PO SCH (09:16)
[2018-01-09] MEDS: LABETALOL 200 MG TAB PO SCH ×2 (09:16→21:29)
[2018-01-09] MEDS ORDERED: LEVOTHYROXINE 0.075 MG TAB PO SCH (13:55)
[2018-01-09] MEDS: FERROUS SULFATE 325 MG TABEC PO SCH (21:30)
[2018-01-09] MEDS ORDERED: ACETAMINOPHEN 325 MG TAB PO PRN ×2 (22:00)
[2018-01-10] MEDS ORDERED: LEVOTHYROXINE 0.075 MG TAB PO SCH (06:30)
[2018-01-10] MEDS: LEVOTHYROXINE 0.075 MG TAB PO SCH (06:31)
[2018-01-10] MEDS ORDERED: BISACODYL 5 MG TABEC PO PRN (08:00)
[2018-01-10] MEDS ORDERED: SODIUM PHOSPHATE 118 ML ENEM RC PRN ×2 (08:00)
[2018-01-10] MEDS ORDERED: oxyCODONE/APAP 5/325 MG 1 TAB TAB PO PRN ×2 (08:00)
[2018-01-10] MEDS: FERROUS SULFATE 325 MG TABEC PO SCH ×2 (09:16→21:03)
[2018-01-10] MEDS: DOCUSATE SODIUM 100 MG GELCAP PO SCH (09:17)
[2018-01-10] MEDS: LABETALOL 200 MG TAB PO SCH ×2 (09:17→21:04)
[2018-01-10] MEDS: MULTIVIT/MIN/CA/FE/FA 1 TAB PO SCH (09:18)
[2018-01-10] MEDS: metFORMIN 500 MG TAB PO SCH ×2 (09:22→17:22)
[2018-01-10] MEDS ORDERED: SIMETHICONE 80 MG TAB.CHEW PO SCH (17:00)
[2018-01-11] MEDS: MULTIVIT/MIN/CA/FE/FA 1 TAB PO SCH (08:47)
[2018-01-11] MEDS: LABETALOL 200 MG TAB PO SCH (08:48)
[2018-01-11] MEDS: DOCUSATE SODIUM 100 MG GELCAP PO SCH (08:48)
[2018-01-11] MEDS: LEVOTHYROXINE 0.075 MG TAB PO SCH (08:49)
[2018-01-11] MEDS: metFORMIN 500 MG TAB PO SCH (08:50)
[2018-01-11] MEDS: FERROUS SULFATE 325 MG TABEC PO SCH (09:18)
[2018-01-11] MEDS ORDERED: ACET-2619 PO (14:41)
== END 2018-01-11 15:30 | disposition home or self-care (01) | DRG 540 ==
LOC: MLD 17:40 → UNDOADMOB 17:40 → OBSVTOIN 18:35 → INTOOBSV 18:35 → MLD 01-07 06:51 → OBSVTOIN 01-07 06:51 → MLD 01-08 00:45 → MIC 01-08 00:50 → MFCC 01-09 06:48 → MLD 01-09 08:00 → MFCC 01-09 19:55
PROVIDERS: ADMIT Obstetrics & Gynecology; ATTEND Obstetrics & Gynecology
PROC: 10D00Z1 Extraction of Products of Conception, Low, Open Approach (ICD-10-PCS; principal; 2018-01-07 22:00)
PROC: 3E0234Z Introduction of Serum, Toxoid and Vaccine into Muscle, Percutaneous Approach (ICD-10-PCS; 2018-01-08)
DX: O13.4 Gestational [pregnancy-induced] hypertension without significant proteinuria, complicating childbirth (principal); E88.81 Metabolic syndrome and other insulin resistance; O69.81X0 Labor and delivery complicated by cord around neck, without compression, not applicable or unspecified; O99.284 Endocrine, nutritional and metabolic diseases complicating childbirth; E03.9 Hypothyroidism, unspecified; O75.89 Other specified complications of labor and delivery; O76 Abnormality in fetal heart rate and rhythm complicating labor and delivery; Z3A.40 40 weeks gestation of pregnancy; Z37.0 Single live birth; Z88.6 Allergy status to analgesic agent; Z23 Encounter for immunization; Z90.89 Acquired absence of other organs
CPT/HCPCS: 36415; 51702; 76815; 80048; 80053; 81003; 82948; 83735; 85025; 86592; 86886; 86900; 86901; 87081; 87086; 90715; G0378; J0690; J1170; J1885; J2250; J2270; J2405; J2590; J2704; J3010; J3105; J3475; J3480; J3490; J7030; J7060; J7120; Q0092